=== PATIENT | female | born 1995 | race African-American/Black ===

== ENCOUNTER 2017-07-02 20:16 | Emergency (ER) | payer MEDICAID ==
[~2017-07-02] VITALS: Ht 165.1 cm; Wt 86.0 kg
[2017-07-03 02:17] LABS: CLARITY URINE CLOUDY (CLEAR); COLOR URINE YELLOW (YELLOW); KETONES URINE TRACE (NEGATIVE); PROTEIN URINE NEGATIVE (NEGATIVE); SPECIFIC GRAVITY URINE 1.013 (1.005-1.030)
[2017-07-03 02:18] LABS: LEUKOCYTE ESTERASE URINE 3+ (NEGATIVE); NITRITE URINE NEGATIVE (NEGATIVE); OCCULT BLOOD URINE NEGATIVE (NEGATIVE)
[2017-07-03 05:06] VITALS: BP 106/75
== END 2017-07-03 05:08 | disposition home or self-care (01) ==
LOC: ER 21:14
DX: O23.592 Infection of other part of genital tract in pregnancy, second trimester (principal); N89.8 Other specified noninflammatory disorders of vagina; Z3A.24 24 weeks gestation of pregnancy
CPT/HCPCS: 81001; 87086; 87491; 87591; 99284

== ENCOUNTER 2017-08-01 19:25 | Observation (INO) | payer MEDICAID ==
[~2017-08-01] VITALS: Ht 165.1 cm; Wt 84.8 kg
[2017-08-01] MEDS ORDERED: PREN1TAB78 PO (20:24)
[2017-08-01] MEDS: DEXT 5%/LACTATED RINGERS 1,000 ML IV SCH (21:09)
[2017-08-01 21:14] LABS: CLARITY URINE CLEAR (CLEAR); COLOR URINE DARK YELLOW (YELLOW); KETONES URINE TRACE (NEGATIVE); LEUKOCYTE ESTERASE URINE 1+ (NEGATIVE); NITRITE URINE NEGATIVE (NEGATIVE); OCCULT BLOOD URINE NEGATIVE (NEGATIVE); PROTEIN URINE NEGATIVE (NEGATIVE)
[2017-08-01] MEDS ORDERED: TERBUTALINE SULFATE 1MG/ML VIAL SUBCUT SCH (22:15)
[2017-08-01] MEDS ORDERED: CEFAZOLIN 1,000 MG in DEXT 5% WATER 100 ML IV SCH (22:30)
[2017-08-01] MEDS ORDERED: CEFAZOLIN 1000MG PREMIX 50 ML IV SCH (22:30)
[2017-08-02] MEDS: DEXT 5%/LACTATED RINGERS 1,000 ML IV SCH (00:13)
== END 2017-08-02 08:30 | disposition home or self-care (01) ==
LOC: L&D 19:25
PROVIDERS: ADMIT Obstetrics & Gynecology; ATTEND Obstetrics & Gynecology
DX: O62.9 Abnormality of forces of labor, unspecified (principal); Z3A.28 28 weeks gestation of pregnancy
CPT/HCPCS: 81003; 96365; 96372; 99281; G0378; J0690; J3105; 96360; 96361; J7060

== ENCOUNTER 2017-08-03 18:56 | Observation (INO) | payer MEDICAID ==
[~2017-08-03] VITALS: Ht 165.1 cm; Wt 84.8 kg
[~2017-08-03 18:56] MED LIST: PREN1TAB78 PO
[2017-08-03] MEDS ORDERED: LACTATED RINGERS 1,000 ML IV SCH (20:00)
[2017-08-03 20:45] LABS: CLARITY URINE CLOUDY (CLEAR); COLOR URINE DARK YELLOW (YELLOW); KETONES URINE 1+ (NEGATIVE); LEUKOCYTE ESTERASE URINE 3+ (NEGATIVE); NITRITE URINE NEGATIVE (NEGATIVE); OCCULT BLOOD URINE NEGATIVE (NEGATIVE); PH URINE 6.5 (4.5-8.0); PROTEIN URINE 1+ (NEGATIVE); SPECIFIC GRAVITY URINE 1.027 (1.005-1.030)
[2017-08-03] MEDS ORDERED: CEFAZOLIN 1000MG PREMIX 50 ML IV NR (21:30)
== END 2017-08-04 00:55 | disposition home or self-care (01) ==
LOC: L&D 18:56
PROVIDERS: ADMIT Obstetrics & Gynecology; ATTEND Obstetrics & Gynecology
DX: R10.9 Unspecified abdominal pain (principal); O26.893 Other specified pregnancy related conditions, third trimester; Z3A.29 29 weeks gestation of pregnancy
CPT/HCPCS: 81003; 87086; 96361; 96365; 99281; G0378; J0690; J7120; 96360

== ENCOUNTER 2017-09-21 15:15 | Observation (INO) | payer MEDICAID ==
[~2017-09-21] VITALS: Ht 165.1 cm; Wt 89.4 kg
== END 2017-09-21 16:45 | disposition home or self-care (01) ==
LOC: L&D 15:15
PROVIDERS: ADMIT Obstetrics & Gynecology; ATTEND Obstetrics & Gynecology
DX: O62.9 Abnormality of forces of labor, unspecified (principal); Z3A.36 36 weeks gestation of pregnancy
CPT/HCPCS: 99281; G0378

== ENCOUNTER 2017-10-11 06:44 | Observation (INO) | payer MEDICAID ==
[~2017-10-11] VITALS: Ht 165.1 cm; Wt 89.4 kg
[2017-10-11] MEDS ORDERED: DEXT 5%/LR + PITOCIN 20UNITS/L 1,000 ML IV SCH (07:28)
[2017-10-11] MEDS ORDERED: LACTATED RINGERS 1,000 ML IV SCH (07:28)
[2017-10-11] MEDS ORDERED: METHYLERGONOVINE MALEATE 0.2 MG/ML IM PRN (07:30)
[2017-10-11] MEDS ORDERED: CARBOPROST TROMETHAMINE 250 MCG/ML AMPUL IM PRN (07:30)
[2017-10-11] MEDS ORDERED: MISOPROSTOL 100MCG TABLET VG SCH (07:30)
[2017-10-11] MEDS ORDERED: NALOXONE HCL 0.4 MG/ML 1ML VIAL IM PRN (07:30)
[2017-10-11 08:51] LABS: BASOPHILS % 0.2 % (0.0-2.0); EOSINOPHILS % 1.3 % (0.0-5.0); HEMOGLOBIN. 7.9 g/dL (12.0-16.0); LYMPHOCYTES % 19.8 % (20.0-50.0); MEAN CORPUSCULAR HEMOGLOBIN 22.1 pg (28.0-32.0); MEAN CORPUSCULAR VOLUME 70.2 fL (81.0-99.0); MEAN PLATELET VOLUME 9.4 fl (7.4-10.4); MONOCYTES % 5.3 % (2.0-8.0); NEUTROPHILS % 73.4 % (40.0-76.0); PLATELET 220 x1000/uL (130-400); RED BLOOD CELL COUNT 3.56 mill/uL (4.2-5.4); RED CELL DISTRIBUTION WIDTH 21.8 % (11.6-14.6)
[2017-10-11 08:56] LABS: PARTIAL THROMBOPLASTIN TIME 25.4 sec (23.4-31.0); PROTHROMBIN TIME 10.1 sec (9.4-11.6)
[2017-10-11 10:38] LABS: RUBELLA IGG 109.7 IU/mL (4.99-10)
[2017-10-11 10:39] LABS: HEPATITIS B SURFACE ANTIGEN NEGATIVE
== END 2017-10-11 08:30 | disposition home or self-care (01) ==
LOC: L&D 06:44
PROVIDERS: ADMIT Obstetrics & Gynecology; ATTEND Obstetrics & Gynecology
DX: Z34.93 Encounter for supervision of normal pregnancy, unspecified, third trimester (principal); Z3A.38 38 weeks gestation of pregnancy
CPT/HCPCS: 36415; 85025; 85610; 85730; 86703; 86762; 86850; 86900; 86901; 87340; G0378; J7120; A4315

== ENCOUNTER 2017-10-12 06:10 | Inpatient (IN) | payer MEDICAID ==
[~2017-10-12] VITALS: Ht 165.1 cm; Wt 89.4 kg
[2017-10-12] MEDS ORDERED: LACTATED RINGERS 1,000 ML IV SCH (06:51)
[2017-10-12] MEDS ORDERED: DEXT 5%/LR + PITOCIN 20UNITS/L 1,000 ML IV SCH ×2 (06:51→10:38)
[2017-10-12] MEDS ORDERED: NALOXONE HCL 0.4 MG/ML 1ML VIAL IM PRN (07:00)
[2017-10-12] MEDS ORDERED: FENTANYL CITRATE/PF 50MCG/ML 2ML VIAL ONE (07:31)
[2017-10-12] MEDS ORDERED: MORPHINE SULFATE/PF 1MG/ML 10ML AMP ONE (07:31)
[2017-10-12] MEDS ORDERED: OXYTOCIN 10 UNITS/ML 1ML ONE ×2 (07:35→09:53)
[2017-10-12] MEDS ORDERED: GLYCOPYRROLATE 0.2 MG/ML 2ML VIAL ONE (07:35)
[2017-10-12] MEDS ORDERED: EPHEDRINE SULFATE 50MG/ML VIAL ONE (07:35)
[2017-10-12] MEDS ORDERED: ONDANSETRON HCL 4MG/2ML VIAL ONE (07:36)
[2017-10-12] MEDS ORDERED: SODIUM CHLORIDE 0.9% 10ML VIAL ONE (07:38)
[2017-10-12 08:12] LABS: CLARITY URINE CLOUDY (CLEAR); COLOR URINE YELLOW (YELLOW); KETONES URINE NEGATIVE (NEGATIVE); LEUKOCYTE ESTERASE URINE 2+ (NEGATIVE); NITRITE URINE NEGATIVE (NEGATIVE); OCCULT BLOOD URINE NEGATIVE (NEGATIVE); PH URINE 7.5 (4.5-8.0); PROTEIN URINE NEGATIVE (NEGATIVE); SPECIFIC GRAVITY URINE 1.015 (1.005-1.030)
[2017-10-12] MEDS ORDERED: CEFAZOLIN 2000MG PREMIX 50 ML IV ONE (08:57)
[2017-10-12] MEDS ORDERED: CITRIC ACID/SODIUM CITRATE SOLN 30ML UDC PO NR (08:57)
[2017-10-12 09:08] LABS: *AMPHETAMINES SCREEN URINE NEGATIVE (NEGATIVE)
[2017-10-12 09:09] LABS: *BARBITURATES SCREEN URINE NEGATIVE (NEGATIVE); *BENZODIAZEPINES SCREEN URINE NEGATIVE (NEGATIVE); *COCAINE SCREEN URINE NEGATIVE (NEGATIVE); METHADONE URINE SCREEN NEGATIVE (NEGATIVE)
[2017-10-12 09:10] LABS: CANNABINOID URINE SCREEN NEGATIVE (NEGATIVE); OPIATES URINE SCREEN NEGATIVE (NEGATIVE); PHENCYCLIDINE URINE SCREEN NEGATIVE (NEGATIVE)
[2017-10-12] MEDS ORDERED: MIDAZOLAM HCL 2 MG/2 ML VIAL ONE (09:50)
[2017-10-12] MEDS ORDERED: DIPHENHYDRAMINE 50MG/ML VIAL ONE (10:00)
[2017-10-12] MEDS ORDERED: RHO(D) IMMUNE GLOBULIN 300 MCG/SYR IM PRN (10:45)
[2017-10-12] MEDS ORDERED: LANOLIN OINT 0.25 GM TUBE TOP PRN (10:45)
[2017-10-12] MEDS ORDERED: HYDROCODONE/ACETAMINOPHEN 5/325MG TABLET PO PRN (10:45)
[2017-10-12] MEDS ORDERED: BUTORPHANOL TARTRATE 2 MG/ML VIAL IV PRN (11:00)
[2017-10-12] MEDS ORDERED: DIPHENHYDRAMINE 50MG/ML VIAL IV PRN (11:00)
[2017-10-12] MEDS ORDERED: NALOXONE HCL 0.4 MG/ML 1ML VIAL IV PRN (11:00)
[2017-10-12 11:41] LABS: HEMATOCRIT 24.7 % (36.0-48.0); HEMOGLOBIN 7.6 g/dL (12.0-16.0)
[2017-10-12 12:14] LABS: HEMATOCRIT. 24.5 % (36.0-48.0); HEMOGLOBIN. 7.4 g/dL (12.0-16.0); MEAN CORPUSCULAR HEMOGLOBIN 21.2 pg (28.0-32.0); MEAN CORPUSCULAR VOLUME 70.8 fL (81.0-99.0); MEAN PLATELET VOLUME 9.3 fl (7.4-10.4); PLATELET 214 x1000/uL (130-400); RED BLOOD CELL COUNT 3.46 mill/uL (4.2-5.4)
[2017-10-12 12:52] LABS: NUCLEATED RED BLOOD CELLS 1 /100 WBC
[2017-10-12 12:57] LABS: PLATELET ESTIMATE NORMAL
[2017-10-12 15:00] VITALS: BP 119/75
[2017-10-12 15:20] VITALS: BP 117/74
[2017-10-12 15:40] VITALS: BP 119/77
[2017-10-12 19:35] VITALS: BP 127/77
[2017-10-12] MEDS ORDERED: DIPHENHYDRAMINE 25MG CAPSULE PO PRN (21:00)
[2017-10-12] MEDS: DOCUSATE SODIUM 100MG CAPSULE PO SCH ×2 (21:00→23:21)
[2017-10-12] MEDS: IBUPROFEN 800MG TABLET PO PRN (23:22)
[2017-10-12 23:38] VITALS: BP 120/79
[2017-10-13 06:01] VITALS: BP 116/75
[2017-10-13 06:45] LABS: BASOPHILS % 0.3 % (0.0-2.0); EOSINOPHILS % 0.6 % (0.0-5.0); HEMATOCRIT. 25.3 % (36.0-48.0); HEMOGLOBIN. 7.8 g/dL (12.0-16.0); LYMPHOCYTES % 7.4 % (20.0-50.0); MEAN CORPUSCULAR HEMOGLOBIN 21.9 pg (28.0-32.0); MEAN CORPUSCULAR VOLUME 70.8 fL (81.0-99.0); MEAN PLATELET VOLUME 9.6 fl (7.4-10.4); MONOCYTES % 4.4 % (2.0-8.0); NEUTROPHILS % 87.3 % (40.0-76.0); PLATELET 210 x1000/uL (130-400); RED BLOOD CELL COUNT 3.58 mill/uL (4.2-5.4); RED CELL DISTRIBUTION WIDTH 21.9 % (11.6-14.6)
[2017-10-13 09:00] VITALS: BP 109/69
[2017-10-13] MEDS: PRENATAL VIT/FE FUMARATE/FA TABLET PO SCH (09:59)
[2017-10-13] MEDS: IBUPROFEN 800MG TABLET PO PRN (10:10)
[2017-10-13] MEDS: ACETAMINOPHEN WITH CODEINE 300/30MG TABLET PO PRN ×2 (11:37→21:06)
[2017-10-13 16:00] VITALS: BP 117/70
[2017-10-13 20:00] VITALS: BP 115/69
[2017-10-13] MEDS: DOCUSATE SODIUM 100MG CAPSULE PO SCH (21:05)
[2017-10-13 23:48] VITALS: BP 116/71
[2017-10-14] MEDS ORDERED: BISACODYL 5MG TABLET PO PRN (01:15)
[2017-10-14 04:05] VITALS: BP 113/71
[2017-10-14] MEDS: ACETAMINOPHEN WITH CODEINE 300/30MG TABLET PO PRN ×2 (04:27→09:37)
[2017-10-14 08:00] VITALS: BP 112/67
[2017-10-14] MEDS: PRENATAL VIT/FE FUMARATE/FA TABLET PO SCH (09:37)
[2017-10-14 16:02] VITALS: BP 119/73
[2017-10-14] MEDS: IBUPROFEN 800MG TABLET PO PRN (16:45)
[2017-10-14 22:00] VITALS: BP 122/66
[2017-10-15 06:00] VITALS: BP 115/71
[2017-10-15 09:00] VITALS: BP 103/61
[2017-10-15] MEDS: PRENATAL VIT/FE FUMARATE/FA TABLET PO SCH (10:45)
== END 2017-10-15 16:30 | disposition home or self-care (01) | DRG 540 ==
LOC: L&D 06:10 → OBSVTOIN 06:10 → 7EST PP/OB 17:50
PROVIDERS: ADMIT Obstetrics & Gynecology; ATTEND Obstetrics & Gynecology
PROC: 0DNW0ZZ Release Peritoneum, Open Approach (ICD-10-PCS; 2017-10-12)
PROC: 0UB70ZZ Excision of Bilateral Fallopian Tubes, Open Approach (ICD-10-PCS; 2017-10-12)
PROC: 10D00Z1 Extraction of Products of Conception, Low, Open Approach (ICD-10-PCS; principal; 2017-10-12 10:50)
DX: O34.211 Maternal care for low transverse scar from previous cesarean delivery (principal); D62 Acute posthemorrhagic anemia; O32.2XX2 Maternal care for transverse and oblique lie, fetus 2; O99.02 Anemia complicating childbirth; O32.1XX1 Maternal care for breech presentation, fetus 1; Z30.2 Encounter for sterilization; Z37.2 Twins, both liveborn; Z3A.39 39 weeks gestation of pregnancy
CPT/HCPCS: 36415; 80305; 81003; 85014; 85018; 85025; 86592; 86850; 86886; 86900; 86920; 88302; 88307; A4216; J0690; J1200; J2250; J2274; J2405; J2590; J3010; J3490; J7120; A4315

== ENCOUNTER 2018-11-15 15:32 | Emergency (ER) | payer MEDICAID ==
[~2018-11-15] VITALS: Ht 165.1 cm; Wt 77.0 kg
[2018-11-15 16:20] VITALS: BP 111/60
== END 2018-11-15 19:36 | disposition left against medical advice (07) ==
LOC: ER 16:39
DX: Z53.21 Procedure and treatment not carried out due to patient leaving prior to being seen by health care provider (principal)

== ENCOUNTER 2023-06-23 13:30 | Emergency (ER) | payer MEDICAID ==
[~2023-06-23] VITALS: Ht 167.6 cm; Wt 62.0 kg
[2023-06-23 13:42] VITALS: BP 113/71; PULSE 94; RESP 18; TEMP 99.6; O2SAT 100
[2023-06-23] MEDS ORDERED: IBUP-2029 MT (14:54)
[2023-06-23] MEDS ORDERED: BENZ1LOZ73 MT (14:54)
[2023-06-23] MEDS ORDERED: GUAI-450 MT (14:55)
== END 2023-06-23 15:39 | disposition home or self-care (01) ==
LOC: ER 13:30
DX: J06.9 Acute upper respiratory infection, unspecified (principal); Z98.890 Other specified postprocedural states
CPT/HCPCS: 99282